=== PATIENT | female | born 1955 | race Hispanic/Latino ===

== ENCOUNTER 2020-08-29 02:27 | Inpatient (IN) | payer MEDICAID ==
[2020-08-29] MEDS ORDERED: methylPREDNISolone Sod Succinate 125 MG/2 ML INJ IV ONE (02:31)
[2020-08-29] MEDS ORDERED: MAGNESIUM SULFATE 2 GM/50 ML BAG IV ONE (02:31)
--- NOTE | 2020-08-29 02:33 | Emergency Department Report ---
ED Shortness of Breath HPI - General Chief Complaint: Dyspnea/Respdistress Stated Complaint: SHORTNESS OF BREATH Time Seen by Provider: 08/29/20 02:30 Source: patient, EMS Mode of arrival: Stretcher Limitations: No Limitations - History of Present Illness Initial Comments: Patient is a 65-year-old female with history of COPD, emphysema chronic bronchitis that presents emergency room with complaints of shortness of breath. Patient dates of difficulty breathing. Patient recently started at 2 PM. Patient states her symptoms are worsening. Patient states she has had a cough and has felt congested. Patient denies fever and chills. Patient states her symptoms are better with rest and worse with exertion. Patient states she ran out of her nebulizer treatments 2 weeks ago. Patient states she is on home oxygen of 3 L. Patient brought in by EMS. EMS states that she was on was 98% on her home oxygen level of 3 L. Patient was not given any medication by EMS. Patient denies recent travel. Patient denies recent international travel. Patient denies exposure to the novel coronavirus. Patient denies sick contacts. Patient denies fever and chills. Patient denies diarrhea. Patient denies coming in contact with anybody with symptoms of the novel coronavirus. . Complaint: shortness of breath -: Sudden Severity: severe Improves With: rest Worsens With: exertion Known History Of: COPD Treatments Prior to Arrival: oxygen - Related Data Home Oxygen Therapy: Yes Home Oxygen Amount: 3 Liters Allergies Allergy/AdvReac Type Severity Reaction Status Date / Time No Known Allergies Allergy Unverified 08/29/20 03:01 ED Review of Systems ROS: Stated complaint: SHORTNESS OF BREATH Other details as noted in HPI Constitutional: denies: chills, fever Eyes: denies: eye pain, eye discharge, vision change ENT: denies: ear pain, throat pain Respiratory: see HPI, shortness of breath, SOB with exertion, SOB at rest. denies: cough, wheezing Cardiovascular: as per HPI, dyspnea on exertion. denies: chest pain, palpitations Endocrine: no symptoms reported Gastrointestinal: denies: abdominal pain, nausea, diarrhea Genitourinary: denies: urgency, dysuria, discharge Musculoskeletal: denies: back pain, joint swelling, arthralgia Skin: denies: rash, lesions Neurological: denies: headache, weakness, paresthesias Psychiatric: anxiety. denies: depression Hematological/Lymphatic: denies: easy bleeding, easy bruising ED Past Medical Hx - Past Medical History Previous Medical History?: Yes Hx COPD: Yes - Surgical History Past Surgical History?: No - Family History Family history: no significant - Social History Smoking Status: Former Smoker Substance Use Type: None ED Physical Exam - General General appearance: alert, in distress - Head Head exam: Present: atraumatic, normocephalic - Eye Eye exam: Present: normal appearance - ENT ENT exam: Present: mucous membranes dry - Neck Neck exam: Present: normal inspection - Respiratory Respiratory exam: Present: respiratory distress, wheezes, decreased breath sounds - Cardiovascular Cardiovascular Exam: Present: regular rate, normal rhythm. Absent: systolic murmur, diastolic murmur, rubs, gallop - GI/Abdominal GI/Abdominal exam: Present: soft, normal bowel sounds - Extremities Exam Extremities exam: Present: normal inspection - Back Exam Back exam: Present: normal inspection - Neurological Exam Neurological exam: Present: alert, oriented X3 - Psychiatric Psychiatric exam: Present: normal affect, normal mood - Skin Skin exam: Present: warm, dry, intact, normal color. Absent: rash ED Course Vital Signs 08/29/20 08/29/20 08/29/20 02:33 02:34 02:35 Temperature Pulse Rate 93 H 91 H 93 H Pulse Rate [ Bilateral Throughout] Respiratory 24 36 H 37 H Rate Respiratory Rate [Bilateral Throughout] Blood Pressure 139/85 139/85 O2 Sat by Pulse 99 98 100 Oximetry 08/29/20 08/29/20 08/29/20 02:36 02:37 02:39 Temperature 97.1 F L Pulse Rate 89 95 H 93 H Pulse Rate [ Bilateral Throughout] Respiratory 24 25 H 35 H Rate Respiratory Rate [Bilateral Throughout] Blood Pressure 136/110 139/85 139/85 O2 Sat by Pulse 98 100 99 Oximetry 08/29/20 08/29/20 08/29/20 02:41 02:43 02:45 Temperature Pulse Rate 90 95 H 96 H Pulse Rate [ Bilateral Throughout] Respiratory 27 H 31 H 26 H Rate Respiratory Rate [Bilateral Throughout] Blood Pressure 139/85 139/85 139/85 O2 Sat by Pulse 99 100 99 Oximetry 08/29/20 08/29/20 08/29/20 02:46 02:47 02:49 Temperature Pulse Rate 88 88 90 Pulse Rate [ Bilateral Throughout] Respiratory 35 H 30 H 26 H Rate Respiratory Rate [Bilateral Throughout] Blood Pressure 144/76 144/76 144/76 O2 Sat by Pulse 99 100 100 Oximetry 08/29/20 08/29/20 08/29/20 02:51 02:53 02:55 Temperature Pulse Rate 98 H 89 92 H Pulse Rate [ Bilateral Throughout] Respiratory 36 H 28 H 33 H Rate Respiratory Rate [Bilateral Throughout] Blood Pressure 144/76 144/76 144/76 O2 Sat by Pulse 99 99 100 Oximetry 08/29/20 08/29/20 08/29/20 02:57 02:59 03:01 Temperature Pulse Rate 89 95 H 96 H Pulse Rate [ Bilateral Throughout] Respiratory 29 H 31 H 32 H Rate Respiratory Rate [Bilateral Throughout] Blood Pressure 144/76 144/76 147/91 O2 Sat by Pulse 100 100 99 Oximetry 08/29/20 08/29/20 08/29/20 03:03 03:05 03:07 Temperature Pulse Rate 102 H 97 H 96 H Pulse Rate [ Bilateral Throughout] Respiratory 33 H 22 22 Rate Respiratory Rate [Bilateral Throughout] Blood Pressure 147/91 147/91 147/91 O2 Sat by Pulse 100 100 100 Oximetry 08/29/20 08/29/20 03:09 03:11 Temperature Pulse Rate 95 H Pulse Rate [ 98 H Bilateral Throughout] Respiratory 30 H Rate Respiratory 28 H Rate [Bilateral Throughout] Blood Pressure 144/76 O2 Sat by Pulse 99 Oximetry - Reevaluation(s) Reevaluation #1: Patient have increased work of breathing. Patient was placed on BiPAP. 08/29/20 02:30 Reevaluation #2: Patient anxious and will be given Ativan. Patient on BiPAP. Patient's work to breathe has improved. 08/29/20 03:01 Reevaluation #3: I discussed all results with patient. I discussed plan of care with patient. Patient agrees with plan of care and admission. Patient to be admitted to the hospitalist service. 08/29/20 04:11 - Consultations Consultation #1: Hospitalist consulted for admission. Hospitalist to admit patient. 08/29/20 04:11 ED Medical Decision Making - Lab Data Result diagrams: 08/29/20 03:02 08/29/20 03:02 - EKG Data -: EKG Interpreted by Me EKG shows normal: sinus rhythm, axis, intervals, QRS complexes, ST-T waves Rate: normal - Radiology Data Radiology results: report reviewed, image reviewed interpreted by me: Chest x-ray: Positive pneumonia, no pneumothorax, no foreign body, no osseous findings, CHEST 1 VIEW INDICATION / CLINICAL INFORMATION: Dyspnea. COMPARISON: None available. FINDINGS: SUPPORT DEVICES: None. HEART / MEDIASTINUM: No significant abnormality. LUNGS / PLEURA: Mild hazy opacity in the lateral right lung base. No pneumothorax. ADDITIONAL FINDINGS: No significant additional findings. IMPRESSION: 1. Mild hazy opacity in the lateral right lung base. This may be artifactual secondary to superimposed soft tissues, but a developing airspace consolidation is possible. - Medical Decision Making Patient is a 65-year-old female that presents emergency room plaints of cough, congestion and shortness of breath. Patient has history of COPD. Patient brought in by EMS. Patient given magnesium, Solu-Medrol and DuoNeb and placed on BiPAP immediately after initial evaluation. Patient improved on BiPAP. Patient to work to breathe improved on BiPAP. Patient was also complaining anxiety with the BiPAP and she was given Ativan and the patient calm down. Patient responded well to treatment. Patient had labs done which were essentially unremarkable. Patient had a normal WBC. - Differential Diagnosis COPD exacerbation, pneumonia, anxiety, hypoxia, respiratory failure Critical Care Time: Yes Critical care time in (mins) excluding proc time.: 35 Critical care attestation.: If time is entered above; I have spent that time in minutes in the direct care of this critically ill patient, excluding procedure time. Critical Care Time: 35 minutes ED Disposition Clinical Impression: COPD exacerbation, SOB (shortness of breath), Cough, Person under investigation for COVID-19 Acute and chronic respiratory failure Qualifiers: Respiratory failure complication: hypoxia Qualified Code(s): J96.21 - Acute and chronic respiratory failure with hypoxia Pneumonia Qualifiers: Pneumonia type: due to unspecified organism Laterality: right Lung location: unspecified part of lung Qualified Code(s): J18.9 - Pneumonia, unspecified organism Disposition: DC-09 OP ADMIT IP TO THIS HOSP Is pt being admited?: Yes Does the pt Need Aspirin: No Condition: Critical Instructions: Chronic Obstructive Pulmonary Disease (ED), Bacterial Pneumonia (ED) Time of Disposition: 04:14
[2020-08-29] MEDS ORDERED: IPRATROPIUM 0.02% NEBU 2.5 ML IH ONE (03:00)
[2020-08-29] MEDS ORDERED: ALBUTEROL 2.5 MG/3 ML NEBU IH ONE (03:00)
[2020-08-29] MEDS ORDERED: LORazepam 2 MG/ML VIAL IV ONE (03:04)
[2020-08-29] MEDS: IPRATROPIUM 0.02% NEBU 2.5 ML IH ONE ×2 (03:08→06:57)
[2020-08-29] MEDS: ALBUTEROL 2.5 MG/3 ML NEBU IH ONE ×2 (03:08→06:58)
--- NOTE | 2020-08-29 03:21 | XRay Report ---
CHEST 1 VIEW INDICATION / CLINICAL INFORMATION: Dyspnea. COMPARISON: None available. FINDINGS: SUPPORT DEVICES: None. HEART / MEDIASTINUM: No significant abnormality. LUNGS / PLEURA: Mild hazy opacity in the lateral right lung base. No pneumothorax. ADDITIONAL FINDINGS: No significant additional findings. IMPRESSION: 1. Mild hazy opacity in the lateral right lung base. This may be artifactual secondary to superimpose d soft tissues, but a developing airspace consolidation is possible. Signer Name: Theresa Del Cid MD Signed: 08/29/2020 3:16 AM Workstation Name: [id number]
[2020-08-29 03:33] LABS: Basophils % (Auto) 0.6 % (0.0-1.8); Eosinophils # (Auto) 0.2 K/mm3 (0.0-0.4); Eosinophils % (Auto) 2.2 % (0.0-4.3); Hematocrit 39.6 % (30.3-42.9); Hemoglobin 13.4 gm/dl (10.1-14.3); Lymphocytes # (Auto) 2.3 K/mm3 (1.2-5.4); Lymphocytes % (Auto) 30.5 % (13.4-35.0); Mean Corpuscular HGB Conc 34 % (30-34); Mean Corpuscular Volume 93 fl (79-97); Monocytes # (Auto) 0.9 K/mm3 (0.0-0.8); Monocytes % (Auto) 11.6 % (0.0-7.3); Platelet Count 180 K/mm3 (140-440); Red Blood Count 4.24 M/mm3 (3.65-5.03); Red Cell Distribution Width 13.2 % (13.2-15.2)
[2020-08-29 03:43] LABS: INR 0.96 (0.87-1.13); Partial Thromboplastin Time 32.9 Sec. (24.2-36.6)
[2020-08-29 03:51] LABS: Creatine Kinase MB 2.2 ng/mL (0.0-4.0)
[2020-08-29 03:53] LABS: Alanine Aminotransferase 9 units/L (7-56); Albumin 4.1 g/dL (3.9-5); Blood Urea Nitrogen 10 mg/dL (7-17); Calcium 8.8 mg/dL (8.4-10.2); Hemolysis Index 14
[2020-08-29 03:55] LABS: BUN/Creatinine Ratio 25
[2020-08-29] MEDS ORDERED: AZITHROMYCIN/NS 500 MG/250 ML 500 MG/250 ML BAG IV ONE (04:19)
[2020-08-29] MEDS ORDERED: cefTRIAXone/NS 2 GM/100 ML 2 GM/100 ML BAG IV ONE (04:19)
[2020-08-29] MEDS ORDERED: MAGNESIUM HYDROXIDE (MOM) ORAL LIQD UDC PO PRN (04:43)
[2020-08-29] MEDS ORDERED: ONDANSETRON 4 MG/2 ML INJ IV PRN (04:43)
[2020-08-29] MEDS ORDERED: SODIUM CHLORIDE 0.9% 1000 ML 1,000 ML IV SCH (04:45)
--- NOTE | 2020-08-29 04:56 | History and Physical Report ---
History of Present Illness Date of examination: 08/29/20 Date of admission: 08/29/2020 Chief complaint: Shortness of breath Difficulty breathing History of present illness: 65-year-old female with known history of COPD presenting in the emergency room today complaining of shortness of breath which started sometime this afternoon. She has had some cough which is nonproductive and felt slightly congested. She denies any fever or chills, no chest pain, no headache or dizziness, no diaphoresis. Symptoms are said to get worse on exertion and feels better upon resting. Patient indicates that she ran out of her nebulizer treatments about 2 weeks ago. She has been on 3 L of home oxygen. Patient denies any sick contacts and no recent travel. Denies any contact with anyone with COVID-19. Work-up in the emergency room today, chest x-ray reveals mild hazy opacity in the lateral right lung base. Developing airspace consolidation is possible. Patient admitted with acute on chronic respiratory failure, COPD exacerbation and or underlying pneumonia. Past History Past Medical History: COPD Past Surgical History: denies: No surgical history Social history: smoking (Current daily smoker-smokes about 2 cigarettes daily) Family history: denies: no significant family history Medications and Allergies Allergies Allergy/AdvReac Type Severity Reaction Status Date / Time No Known Allergies Allergy Unverified 08/29/20 03:01 Active Meds: Active Medications Azithromycin (Zithromax/Ns) 500 mg in 250 mls @ 250 mls/hr IV ONCE ONE; Protocol Stop: 08/29/20 05:18 Review of Systems Constitutional: no fever, no chills Ears, nose, mouth and throat: no nasal congestion, no sore throat Cardiovascular: no chest pain, no palpitations Respiratory: cough, shortness of breath Gastrointestinal: no abdominal pain, no nausea, no vomiting, no diarrhea Genitourinary Female: no pelvic pain, no flank pain, no dysuria, no hematuria Musculoskeletal: no neck pain, no low back pain Integumentary: no rash, no pruritis Neurological: no headaches, no confusion Psychiatric: no anxiety, no depression, no confusion Endocrine: no polyphagia, no polydipsia, no polyuria, no nocturia Exam - Constitutional Vitals: Temp Pulse Resp BP Pulse Ox 97.1 F L 93 H 18 176/83 98 08/29/20 02:36 08/29/20 04:30 08/29/20 04:30 08/29/20 04:30 08/29/20 04:30 General appearance: Present: no acute distress, well-nourished - EENT Eyes: Present: PERRL, EOM intact. Absent: scleral icterus ENT: hearing intact, clear oral mucosa, dentition normal - Neck Neck: Present: supple, normal ROM - Respiratory Respiratory effort: normal Respiratory: bilateral: CTA - Cardiovascular Rhythm: regular Heart Sounds: Present: S1 & S2. Absent: gallop, systolic murmur, diastolic m urmur, rub, click - Extremities Extremities: no ischemia, pulses intact, pulses symmetrical, No edema, normal temperature, normal color, Full ROM Peripheral Pulses: within normal limits - Abdominal General gastrointestinal: Present: soft, non-tender, non-distended, normal bowel sounds. Absent: mass - Integumentary Integumentary: Present: clear, warm, dry, normal turgor. Absent: rash - Musculoskeletal Musculoskeletal: strength equal bilaterally - Psychiatric Psychiatric: appropriate mood/affect, intact judgment & insight, memory intact, cooperative - Neurologic Neurologic: CNII-XII intact, no focal deficits, moves all extremities HEART Score - HEART Score Troponin: Troponin T < 0.010 ng/mL (0.00-0.029) 08/29/20 03:02 Results - Labs CBC & Chem 7: 08/29/20 03:02 08/29/20 05:57 Labs: Abnormal lab results 08/29/20 08/29/20 Range/Units 03:02 03:02 [place] % (Auto) 11.6 H (0.0-7.3) % [place] # (Auto) 0.9 H (0.0-0.8) K/mm3 Sodium 136 L (137-145) mmol/L Creatinine 0.4 L (0.6-1.2) mg/dL CK-MB (CK-2) Rel Index 4.6 H (0-4) Total Protein 6.2 L (6.3-8.2) g/dL Assessment and Plan - Patient Problems (1) COPD exacerbation Current Visit: Yes Status: Acute Plan to address problem: Patient placed on nebulizing treatment and IV steroid. We will monitor oxygen saturation. (2) Acute and chronic respiratory failure Current Visit: Yes Status: Acute Qualifiers: Respiratory failure complication: hypoxia Qualified Code(s): J96.21 - Acute and chronic respiratory failure with hypoxia Plan to address problem: Possibly secondary to the COPD and underlying pneumonia. Consult placed to acid cleaner for evaluation. (3) Person under investigation for COVID-19 Current Visit: Yes Status: Acute Plan to address problem: We will place patient on isolation precautions. Will await COVID-19 testing. Consult placed to infectious disease for evaluation. (4) Pneumonia Current Visit: Yes Status: Acute Qualifiers: Pneumonia type: due to unspecified organism Laterality: right Lung location: unspecified part of lung Qualified Code(s): J18.9 - Pneumonia, unspecified organism Plan to address problem: Patient placed on empiric IV antibiotics. (5) DVT prophylaxis Current Visit: Yes Status: Acute Plan to address problem: We will placed on subcutaneous Lovenox. (6) Full code status Current Visit: Yes Status: Acute Plan to address problem: Patient is a full code.
[2020-08-29] MEDS: methylPREDNISolone Sod Succinate 40 MG/1 ML INJ IV SCH ×3 (06:40→22:38)
[2020-08-29 06:50] LABS: C-Reactive Protein 0.2 mg/dL (0.00-1.30)
[2020-08-29 07:38] LABS: Chol/HDL Ratio 2.39 %
[2020-08-29] MEDS: cefTRIAXone/NS 2 GM/100 ML 2 GM/100 ML BAG IV SCH (11:55)
[2020-08-29] MEDS: IPRATROPIUM/ALBUTEROL SULFATE 3 ML AMPUL.NEB IH SCH ×3 (12:14→21:47)
[2020-08-29] MEDS: AZITHROMYCIN/NS 500 MG/250 ML 500 MG/250 ML BAG IV SCH (12:26)
--- NOTE | 2020-08-29 13:58 | Consultation ---
History of Present Illness Consult date: 08/29/20 Reason for consult: dyspnea, COPD History of present illness: 65-year-old female with known history of COPD presenting in the emergency room today complaining of shortness of breath which started sometime this afternoon. She has had some cough which is nonproductive and felt slightly congested. She denies any fever or chills, no chest pain, no headache or dizziness, no diaphoresis. Symptoms are said to get worse on exertion and feels better upon resting. Patient indicates that she ran out of her nebulizer treatments about 2 weeks ago. She has been on 3 L of home oxygen. Patient is a current smoker 2 cigarettes/day however used to smoke 1-1/2 pack/day. She also have history of coronary artery disease and reports she has stent placed on her coronary arteries Past History Past Medical History: COPD Past Surgical History: denies: No surgical history Social history: smoking (Current daily smoker-smokes about 2 cigarettes daily) Family history: denies: no significant family history Medications and Allergies Allergies Allergy/AdvReac Type Severity Reaction Status Date / Time No Known Allergies Allergy Unverified 08/29/20 03:01 Active Meds: Active Medications Albuterol/Ipratropium (Ipratropium/Albuterol Sulfate 3 Ml Ampul.Neb) 1 ampul IH Q4HRT [facility] Last Admin: 08/29/20 12:14 Dose: Not Given Documented by: Aspirin (Aspirin Ec 81 Mg Tab) 81 mg PO QDAY [facility] Atorvastatin Calcium (Atorvastatin 40 Mg Tab) 40 mg PO QHS [facility] Enoxaparin Sodium (Enoxaparin 40 Mg/0.4 Ml Inj) 40 mg SUB-Q QDAY@2200 [facility]; Protocol Sodium Chloride (Nacl 0.9% 1000 Ml) 1,000 mls @ 75 mls/hr IV DIRECT [facility] Ceftriaxone Sodium (Rocephin/Ns 2 Gm/100 Ml) 2 gm in 100 mls @ 200 mls/hr IV Q24HR [facility]; Protocol Last Admin: 08/29/20 11:55 Dose: 200 mls/hr Documented by: Azithromycin (Zithromax/Ns) 500 mg in 250 mls @ 250 mls/hr IV Q24HR [facility]; Protocol Last Admin: 08/29/20 12:26 Dose: 250 mls/hr Documented by: Magnesium Hydroxide (Magnesium Hydroxide (Mom) Oral Liqd Udc) 30 ml PO Q4H PRN PRN Reason: Constipation Methylprednisolone Sodium Succinate (Methylprednisolone Sod Succinate 40 Mg/1 Ml Inj) 40 mg IV Q8HR [facility] Last Admin: 08/29/20 06:40 Dose: Not Given Documented by: Morphine Sulfate (Morphine 2 Mg/1 Ml Inj) 2 mg IV Q4H PRN PRN Reason: Pain, Moderate (4-6) Ondansetron HCl (Ondansetron 4 Mg/2 Ml Inj) 4 mg IV Q8H PRN PRN Reason: Nausea And Vomiting Sodium Chloride (Sodium Chloride 0.9% 10 Ml Flush Syringe) 10 ml IV BID [facility] Sodium Chloride (Sodium Chloride 0.9% 10 Ml Flush Syringe) 10 ml IV PRN PRN PRN Reason: LINE FLUSH Review of Systems All systems: negative Breasts: deferred Cardiovascular: shortness of breath, dyspnea on exertion Respiratory: cough with sputum Physical Examination Vital signs: Vital Signs Temp 98.8 F 08/29/20 02:27 General appearance: no acute distress, appears uncomfortable ENT: oropharynx moist Neck: supple, no JVD Ascultation: Bilateral: diminished breath sounds Cardiovascular: regular rate and rhythm Gastrointestinal: normoactive bowel sounds, soft, non-tender Integumentary: normal Extremities: no edema, pink and warm Musculoskeletal: no deformities Gait: other (Not tested) normal mental status, non-focal exam mood appropriate Results - Laboratory Findings CBC and BMP: 08/29/20 03:02 08/29/20 05:57 PT/INR, D-dimer PT 12.7 Sec. (12.2-14.9) 08/29/20 03:02 INR 0.96 (0.87-1.13) 08/29/20 03:02 D-Dimer 140.85 ng/mlDDU (0-234) 08/29/20 05:57 Abnormal lab findings: Abnormal Labs 08/29/20 08/29/20 08/29/20 03:02 03:02 05:57 [place] % (Auto) 11.6 H [place] # (Auto) 0.9 H Sodium 136 L Creatinine 0.4 L Glucose CK-MB (CK-2) Rel Index 4.6 H Troponin T 0.046 H D Total Protein 6.2 L 08/29/20 05:57 [place] % (Auto) [place] # (Auto) Sodium Creatinine Glucose 139 H CK-MB (CK-2) Rel Index Troponin T Total Protein - Diagnostic Findings Chest x-ray: image reviewed (Changes of COPD) Assessment and Plan Impression: COPD with acute exacerbation Continued tobacco abuse Coronary artery disease s/p angioplasty and stent placement. Hypoxemia on home oxygen therapy at 3 L Recommendation: Continue with COPD protocol including inhaled bronchodilators, IV steroids and antibiotics. Continue with supplemental oxygen Will require LAMA/LABA/ICS combination at home after discharge Come complete pulmonary function testing in the future as outpatient Smoking cessation counseling was provided.
--- NOTE | 2020-08-29 15:23 | Event Note ---
Date: 08/29/20 This is the second visit after midnight Patient seen and examined 65-year-old female with known history of COPD presenting in the emergency room c omplaining of shortness of breath Patient indicates that she ran out of her nebulizer treatments about 2 weeks ago. She has been on 3 L of home oxygen. Work-up in the emergency room today, chest x-ray reveals mild hazy opacity in the lateral right lung base. Developing airspace consolidation is possible. Patient admitted with acute on chronic respiratory failure, COPD exacerbation and or underlying pneumonia/covid19 PUI. Patient initially required BiPAP for an admission now currently saturating well with nasal cannula COVID-19 test ordered and pending, will downgrade her to COVID-19 floor from [facility] [place] Continue supportive care and management as dictated in the HPI
[2020-08-29] MEDS: ALPRAZolam 0.25 MG TAB PO PRN ×2 (17:53→23:57)
[2020-08-29] MEDS: ASPIRIN EC 81 MG TAB PO SCH (17:53)
[2020-08-29] MEDS: MORPHINE 2 MG/1 ML INJ IV PRN ×2 (17:56→22:36)
[2020-08-29] MEDS: ENOXAPARIN 40 MG/0.4 ML INJ SUB-Q SCH (22:37)
[2020-08-30] MEDS ORDERED: ALBUTEROL 2.5 MG/3 ML NEBU IH PRN (00:38)
[2020-08-30] MEDS: IPRATROPIUM/ALBUTEROL SULFATE 3 ML AMPUL.NEB IH SCH ×5 (08:15→22:11)
[2020-08-30] MEDS: AZITHROMYCIN/NS 500 MG/250 ML 500 MG/250 ML BAG IV SCH (10:21)
[2020-08-30] MEDS: ASPIRIN EC 81 MG TAB PO SCH (10:21)
[2020-08-30] MEDS: cefTRIAXone/NS 2 GM/100 ML 2 GM/100 ML BAG IV SCH (10:21)
[2020-08-30] MEDS: methylPREDNISolone Sod Succinate 40 MG/1 ML INJ IV SCH ×3 (10:21→21:14)
[2020-08-30 10:36] LABS: Basophils % (Auto) 0.1 % (0.0-1.8); Hematocrit 37.7 % (30.3-42.9); Hemoglobin 12.4 gm/dl (10.1-14.3); Lymphocytes % (Auto) 11.5 % (13.4-35.0); Mean Corpuscular HGB Conc 33 % (30-34); Mean Corpuscular Volume 94 fl (79-97); Monocytes # (Auto) 0.7 K/mm3 (0.0-0.8); Monocytes % (Auto) 7.5 % (0.0-7.3); Platelet Count 176 K/mm3 (140-440); Red Blood Count 4.02 M/mm3 (3.65-5.03); Red Cell Distribution Width 13.8 % (13.2-15.2)
--- NOTE | 2020-08-30 10:37 | Progress Note ---
Assessment and Plan -- COPD exacerbation Patient placed on nebulizing treatment and IV steroid. We will monitor oxygen saturation. -- Acute and chronic respiratory failure Possibly secondary to the COPD and underlying pneumonia. Consult placed to high school academic coach for evaluation. --Person under investigation for COVID-[address] patient on isolation precautions. Will await COVID-19 testing. Consult placed to infectious disease for evaluation. -- Pneumonia Patient placed on empiric IV antibiotics. We will also rule out COVID-19 --Mild hyponatremia, gentle IV fluid hydration and encourage oral intake -- DVT prophylaxis We will placed on subcutaneous Lovenox. -- Full code status. Brief history: 65-year-old female with known history of COPD presenting in the emergency room complaining of shortness of breath Patient indicates that she ran out of her nebulizer treatments about 2 weeks ago. She has been on 3 L of home oxygen. Work-up in the emergency room today, chest x-ray reveals mild hazy opacity in the lateral right lung base. Developing airspace consolidation is possible. Patient admitted with acute on chronic respiratory failure, COPD exacerbation and or underlying pneumonia/covid19 PUI. Patient initially required BiPAP for an admission now currently saturating well with nasal cannula COVID-19 test ordered and pending, 08/30: Continue empiric antibiotic, continue steroid and breathing treatment. Pending COVID-19 test. Continue to monitor clinically with supportive care. Subjective Date of service: 08/30/20 Interval history: Patient seen and examined. Medical records and medication list reviewed. No acute event overnight noted by the RN. Patient denies any chest pain or difficulty breathing. Patient is tolerating diet. Discussed plan of care at bedside with patient. Pending Covid test result Objective - Exam Narrative Exam: Limited physical exam due to COVID-19 pandemic to minimize transmission of the disease and to preserve PPE. Vital reviewed and stable. GENERAL: well-developed elderly white female sitting on bed appeared to be in n o discomfort. HEENT: Normocephalic. Atraumatic. NECK: Supple. CHEST/LUNGS: breathing nonlabored. HEART/CARDIOVASCULAR: Heart rate stable on telemetry ABDOMEN: Visibly not distended SKIN: There is no rash NEURO: No focal motor deficit. Follows command. MUSCULOSKELETAL: No joint effusion EXTRIMITY: No swelling, no cyanosis or clubbing. PSYCH: Cooperative. - Constitutional Vitals: Vital Signs - 12hr 08/29/20 08/29/20 08/29/20 22:40 22:50 23:00 Temperature Pulse Rate Respiratory Rate Blood Pressure 167/91 154/85 165/90 O2 Sat by Pulse 98 97 97 Oximetry 08/29/20 08/29/20 08/29/20 23:10 23:20 23:30 Temperature 98.1 F Pulse Rate 87 Respiratory 20 Rate Blood Pressure 118/64 146/87 136/91 O2 Sat by Pulse 95 97 95 Oximetry 08/29/20 08/29/20 08/29/20 23:40 23:50 23:52 Temperature 98.9 F Pulse Rate 89 Respiratory Rate Blood Pressure 136/91 155/88 155/88 O2 Sat by Pulse 95 97 97 Oximetry 08/30/20 08/30/20 08/30/20 00:00 00:10 00:20 Temperature Pulse Rate Respiratory Rate Blood Pressure 157/121 155/88 170/87 O2 Sat by Pulse 98 97 Oximetry 08/30/20 08/30/20 08/30/20 00:30 00:40 00:50 Temperature Pulse Rate Respiratory Rate Blood Pressure 174/84 170/87 167/83 O2 Sat by Pulse 96 97 97 Oximetry 08/30/20 04:54 Temperature 98.3 F Pulse Rate 82 Respiratory 20 Rate Blood Pressure 124/64 O2 Sat by Pulse 89 Oximetry - Labs CBC & Chem 7: 08/30/20 09:55 08/30/20 09:55 HEART Score - HEART Score Troponin: Troponin T < 0.010 ng/mL (0.00-0.029) 08/29/20 22:53
[2020-08-30 10:48] LABS: INR 1.01 (0.87-1.13)
[2020-08-30 11:52] LABS: BUN/Creatinine Ratio 20; Blood Urea Nitrogen 12 mg/dL (7-17); Calcium 8.8 mg/dL (8.4-10.2); Hemolysis Index 5
[2020-08-30] MEDS ORDERED: FLU VACC QUAD 2020-2021 (6 months +)/PF 60 0.5 ML SYRINGE IM ONE (12:00)
[2020-08-30] MEDS: MORPHINE 2 MG/1 ML INJ IV PRN ×2 (13:49→22:01)
--- NOTE | 2020-08-30 14:09 | Consultation ---
History of Present Illness - Reason for Consult Consult date: 08/30/20 r/o COVID Requesting physician: RICHIE HENDERSON III - History of Present Illness 65-year-old female with history of COPD on 3 L home O2, smoking abuse, admitted on 08/29/2020 secondary to 3-day history of acute onset shortness of breath. Patient run out off-nebulizer 2 weeks before admission. She has not had COVID- 19 vaccine.-Patient 98.8, HR 93, RR 24, O2 sat 99%, BP 139/85. Initial WBC 7.4. D-dimer 140. Ferritin 25. CRP 0.2. LFTs normal. Procalcitonin less than 0.05. Chest x-ray with hazy right-sided opacity. Review of Systems: positive in bold print General: fever, chills, malaise Cutaneous: rash, pruritus Head: headaches or injury Eyes: changes in vision, eye pain, double vision Ears: ear pain, ear discharge, ringing or hearing loss Nose: nose bleeding, stuffiness Mouth & throat: bleeding gums, horseness, no dental problems, or swollen glands Neck: no pain, node enlargement/lumps, tyroid enlargement or tenderness Respiratory: SOB, cough, LEIVA, wheezing, sputum, hemoptysis, pleuritic chest pain Cardiovascular: chest pain, leg edema, cyanosis, LEIVA, orthopnea Musculoskeletal: edema, deformities, pain Gastrointestinal: nausea, vomiting, hematemesis, diarrhea, constipation, melena, bright red blood in stools, fecal incontinence, jaundice Genitourinary/Reproductive: frequent urination, dysuria, hematuria, incontinence Neurogical: seizures, headaches, weakness, paresthesias, loss of speech or vision; memory loss, vertigo, tremors, numbness Psychiatric: stable mood; excessive anxiety, sadness or moodiness Past History Past Medical History: COPD Past Surgical History: denies: No surgical history Social history: smoking (Current daily smoker-smokes about 2 cigarettes daily) Family history: denies: no significant family history Medications and Allergies Allergies Allergy/AdvReac Type Severity Reaction Status Date / Time No Known Allergies Allergy Unverified 08/29/20 03:01 Active Meds: Active Medications Albuterol (Albuterol 2.5 Mg/3 Ml Nebu) 2.5 mg IH Q4HRT PRN PRN Reason: Shortness Of Breath Albuterol/Ipratropium (Ipratropium/Albuterol Sulfate 3 Ml Ampul.Neb) 1 ampul IH TIDRT [facility] Last Admin: 08/30/20 08:15 Dose: 1 ampul Documented by: Alprazolam (Alprazolam 0.25 Mg Tab) 0.25 mg PO Q6H PRN PRN Reason: Anxiety Last Admin: 08/29/20 23:57 Dose: 0.25 mg Documented by: Aspirin (Aspirin Ec 81 Mg Tab) 81 mg PO QDAY [facility] Last Admin: 08/30/20 10:21 Dose: 81 mg Documented by: Atorvastatin Calcium (Atorvastatin 40 Mg Tab) 40 mg PO QHS [facility] Last Admin: 08/29/20 22:37 Dose: 40 mg Documented by: Enoxaparin Sodium (Enoxaparin 40 Mg/0.4 Ml Inj) 40 mg SUB-Q QDAY@2200 [facility]; Protocol Last Admin: 08/29/20 22:37 Dose: 40 mg Documented by: Sodium Chloride (Nacl 0.9% 1000 Ml) 1,000 mls @ 75 mls/hr IV DIRECT [facility] Ceftriaxone Sodium (Rocephin/Ns 2 Gm/100 Ml) 2 gm in 100 mls @ 200 mls/hr IV Q24HR [facility]; Protocol Last Admin: 08/30/20 10:21 Dose: 200 mls/hr Documented by: Azithromycin (Zithromax/Ns) 500 mg in 250 mls @ 250 mls/hr IV Q24HR [facility]; Protocol Last Admin: 08/30/20 10:21 Dose: 250 mls/hr Documented by: Magnesium Hydroxide (Magnesium Hydroxide (Mom) Oral Liqd Udc) 30 ml PO Q4H PRN PRN Reason: Constipation Methylprednisolone Sodium Succinate (Methylprednisolone Sod Succinate 40 Mg/1 Ml Inj) 40 mg IV Q8HR [facility] Last Admin: 08/30/20 13:49 Dose: 40 mg Documented by: Morphine Sulfate (Morphine 2 Mg/1 Ml Inj) 2 mg IV Q4H PRN PRN Reason: Pain, Moderate (4-6) Last Admin: 08/30/20 13:49 Dose: 2 mg Documented by: Ondansetron HCl (Ondansetron 4 Mg/2 Ml Inj) 4 mg IV Q8H PRN PRN Reason: Nausea And Vomiting Last Admin: 08/29/20 17:56 Dose: 4 mg Documented by: Sodium Chloride (Sodium Chloride 0.9% 10 Ml Flush Syringe) 10 ml IV BID [facility] Last Admin: 08/30/20 13:55 Dose: 10 ml Documented by: Sodium Chloride (Sodium Chloride 0.9% 10 Ml Flush Syringe) 10 ml IV PRN PRN PRN Reason: LINE FLUSH Physical Examination - Physical Exam Narrative exam: General appearance: Alert in NAD pleasant Eyes: anicteric sclerae, moist conjunctivae; no lid-lag; PERRLA HENT: Normocephalic, Atraumatic; normal external ears, nares open, oropharynx clear with moist mucous membranes and no oral thrush; normal hard and soft palate. Neck: supple, tracheal midline, no JVD Lungs: Diminished breath sound bilaterally CV: RRR no murmur Abdomen: Soft, non-tender; no masses or hepatosplenomegaly Extremities: no edema, no cyanosis Skin: No rash. Psych: no agitated Neuro: alert and oriented x 3. Moving all extermities - Constitutional Vitals: Vital Signs Temp Pulse Resp BP Pulse Ox 98.3 F 92 H 20 124/64 97 08/30/20 04:54 08/30/20 08:10 08/30/20 08:10 08/30/20 04:54 08/30/20 08:20 Temperature -Last 24 Hours Temperature 98.3 F Temperature 98.9 F Temperature 98.1 F Results - Labs CBC & Chem 7: 08/30/20 09:55 08/30/20 09:55 Labs: Abnormal lab results 08/30/20 08/30/20 Range/Units 09:55 09:55 Lymph % (Auto) 11.5 L (13.4-35.0) % [place] % (Auto) 7.5 H (0.0-7.3) % Lymph # (Auto) 1.0 L (1.2-5.4) K/mm3 Seg Neutrophils % 80.9 H (40.0-70.0) % Glucose 191 H (65-100) mg/dL Assessment and Plan Cultures: None Assessment: 65-year-old female with history of COPD on 3 L home O2, smoking abuse, admitted on 08/29/2020 secondary to 3-day history of acute onset shortness of breath and cough: #COPD exacerbation with possible right-sided pneumonia: Doubt COVID-19 infection. Inflammatory markers for COVID-19 are normal. Procalcitonin<0.05. Chest x-ray with hazy right-sided opacity. #Acute on chronic respiratory failure: Patient is on 3 L home O2, currently on 4 L. Likely due to COPD exacerbation. Recommendations: -Follow SARS-CoV-2 PCR -Continue steroids per internal medicine/pulmonary -Continue ceftriaxone and azithromycin for COPD exacerbation -If SARS-CoV-2 PCR positive, will start remdesivir Will follow. Iram Moore MD Infectious Diseases Crate Repairer [facility] ([facility]) M [phone] O [phone]
--- NOTE | 2020-08-30 15:28 | Progress Note ---
Assessment and Plan Impression: COPD with acute exacerbation Continued tobacco abuse Coronary artery disease s/p angioplasty and stent placement. Hypoxemia on home oxygen therapy at 3 L Recommendation: Continue with COPD protocol including inhaled bronchodilators, IV steroids and antibiotics. Continue with supplemental oxygen Will require LAMA/LABA/ICS combination at home after discharge Come complete pulmonary function testing in the future as outpatient Smoking cessation counseling was provided. Patient seems to be improving with possible discharge on LAMA/LABA/ICS combination and steroid taper. 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 Patient will follow up in office. Subjective Date of service: 08/30/20 Interval history: Patient feeling better wants to go home patient thinks she is close to her baseline Objective - Exam Narrative Exam: General appearance: Alert in NAD pleasant Eyes: anicteric sclerae, moist conjunctivae; no lid-lag; PERRLA HENT: Normocephalic, Atraumatic; normal external ears, nares open, oropharynx clear with moist mucous membranes and no oral thrush; normal hard and soft palate. Neck: supple, tracheal midline, no JVD Lungs: Diminished breath sound bilaterally CV: RRR no murmur Abdomen: Soft, non-tender; no masses or hepatosplenomegaly Extremities: no edema, no cyanosis Skin: No rash. Psych: no agitated Neuro: alert and oriented x 3. Moving all extermities Vital Signs - 12hr 08/30/20 08/30/20 08/30/20 04:54 08:10 08:20 Temperature 98.3 F Pulse Rate 82 Pulse Rate [ 92 H Bilateral Throughout] Respiratory 20 Rate Respiratory 20 Rate [Bilateral Throughout] Blood Pressure 124/64 O2 Sat by Pulse 89 97 Oximetry Constitutional: no acute distress, appears uncomfortable ENT: oropharynx moist Neck: supple, no JVD Ascultation: Bilateral: diminished breath sounds Cardiovascular: regular rate and rhythm Gastrointestinal: normoactive bowel sounds, soft, non-tender Integumentary: normal Extremities: no edema, pink and warm Neurologic: normal mental status, non-focal exam Psychiatric: mood appropriate CBC and BMP: 08/30/20 09:55 08/30/20 09:55 ABG, PT/INR, D-dimer: PT/INR, D-dimer PT 13.2 Sec. (12.2-14.9) 08/30/20 09:55 INR 1.01 (0.87-1.13) 08/30/20 09:55 D-Dimer 140.85 ng/mlDDU (0-234) 08/29/20 05:57 Abnormal lab findings: Abnormal Labs 08/29/20 08/29/20 08/29/20 03:02 03:02 05:57 Lymph % (Auto) Iron % (Auto) 11.6 H Lymph # (Auto) Iron # (Auto) 0.9 H Seg Neutrophils % Sodium 136 L Creatinine 0.4 L Glucose CK-MB (CK-2) Rel Index 4.6 H Troponin T 0.046 H D Total Protein 6.2 L 08/29/20 08/30/20 08/30/20 05:57 09:55 09:55 Lymph % (Auto) 11.5 L Iron % (Auto) 7.5 H Lymph # (Auto) 1.0 L Iron # (Auto) Seg Neutrophils % 80.9 H Sodium Creatinine Glucose 139 H 191 H CK-MB (CK-2) Rel Index Troponin T Total Protein
[2020-08-30] MEDS: ENOXAPARIN 40 MG/0.4 ML INJ SUB-Q SCH (21:17)
[2020-08-30] MEDS: ALPRAZolam 0.25 MG TAB PO PRN (23:40)
[2020-08-31] MEDS: methylPREDNISolone Sod Succinate 40 MG/1 ML INJ IV SCH (05:15)
[2020-08-31] MEDS: IPRATROPIUM/ALBUTEROL SULFATE 3 ML AMPUL.NEB IH SCH ×3 (08:38→21:32)
[2020-08-31] MEDS: AZITHROMYCIN/NS 500 MG/250 ML 500 MG/250 ML BAG IV SCH (10:21)
[2020-08-31] MEDS: ASPIRIN EC 81 MG TAB PO SCH (11:15)
[2020-08-31] MEDS: ALPRAZolam 0.25 MG TAB PO PRN (11:15)
--- NOTE | 2020-08-31 11:17 | Progress Note ---
Assessment and Plan Impression: COPD with acute exacerbation Continued tobacco abuse Coronary artery disease s/p angioplasty and stent placement. Hypoxemia on home oxygen therapy at 3 L Recommendation: Continue with COPD protocol including inhaled bronchodilators. Taper steroids and switch to oral steroids and antibiotics. Continue with supplemental oxygen, has O2 at home Will require LAMA/LABA/ICS combination at home after discharge Come complete pulmonary function testing in the future as outpatient Smoking cessation counseling was provided. Patient seems to be improving with possible discharge on LAMA/LABA/ICS combination and steroid taper. 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 Patient will follow up in office. Subjective Date of service: 08/31/20 Interval history: Patient feeling better wants to go home patient thinks she is close to her baseline continue to improve Objective Vital Signs - 12hr 08/30/20 08/31/20 08/31/20 23:22 04:27 08:38 Temperature 97.9 F 98.0 F Pulse Rate 89 69 Pulse Rate [ 85 Bilateral Throughout] Respiratory 18 18 Rate Respiratory 20 Rate [Bilateral Throughout] Blood Pressure 173/84 137/69 O2 Sat by Pulse 95 94 94 Oximetry Constitutional: no acute distress, appears uncomfortable ENT: oropharynx moist Neck: supple, no JVD Ascultation: Bilateral: diminished breath sounds Cardiovascular: regular rate and rhythm Gastrointestinal: normoactive bowel sounds, soft, non-tender Integumentary: normal Extremities: no edema, pink and warm Neurologic: normal mental status, non-focal exam Psychiatric: mood appropriate CBC and BMP: 08/30/20 09:55 08/30/20 09:55 ABG, PT/INR, D-dimer: PT/INR, D-dimer PT 13.2 Sec. (12.2-14.9) 08/30/20 09:55 INR 1.01 (0.87-1.13) 08/30/20 09:55 D-Dimer 140.85 ng/mlDDU (0-234) 08/29/20 05:57 Abnormal lab findings: Abnormal Labs 08/29/20 08/29/20 08/29/20 03:02 03:02 05:57 Lymph % (Auto) Rich % (Auto) 11.6 H Lymph # (Auto) Rich # (Auto) 0.9 H Seg Neutrophils % Sodium 136 L Creatinine 0.4 L Glucose CK-MB (CK-2) Rel Index 4.6 H Troponin T 0.046 H D Total Protein 6.2 L 08/29/20 08/30/20 08/30/20 05:57 09:55 09:55 Lymph % (Auto) 11.5 L Rich % (Auto) 7.5 H Lymph # (Auto) 1.0 L Rich # (Auto) Seg Neutrophils % 80.9 H Sodium Creatinine Glucose 139 H 191 H CK-MB (CK-2) Rel Index Troponin T Total Protein
[2020-08-31] MEDS: MORPHINE 2 MG/1 ML INJ IV PRN ×2 (11:19→15:40)
[2020-08-31] MEDS: cefTRIAXone/NS 2 GM/100 ML 2 GM/100 ML BAG IV SCH (11:21)
--- NOTE | 2020-08-31 13:27 | Progress Note ---
Assessment and Plan Cultures: COVID-19 PCR: Negative Assessment: 65-year-old female with history of COPD on 3 L home O2, smoking, admitted on 08/29/2020 secondary to 3-day history of acute onset shortness of breath and cough: #COPD exacerbation with possible right-sided pneumonia: COVID negative. Inflammatory markers are normal. Procalcitonin<0.05. Chest x-ray with hazy right-sided opacity. #Acute on chronic respiratory failure: Patient is on 3 L home O2, currently on 4 L. Likely due to COPD exacerbation. Recommendations: -COVID-19 PCR negative -Continue steroids per pulmonary, for COPD -Okay for discharge from ID standpoint on p.o. doxycycline 100 mg twice daily for 3 days -Smoking cessation advised We will sign off. Please call with questions. Sharona Chacko MD, FACP [facility] ([facility]) O: [phone] F: [phone] Subjective Date of service: 08/31/20 Interval history: No fever. Feels well. Wants to go home. Objective - Exam Narrative Exam: Physical Exam: Constitutional: Alert, cooperative. No acute distress Head, Ears, Nose: Normocephalic, atraumatic. External ears, nose normal Eyes: Conjunctivae/corneas clear. No icterus. No ptosis. Neck: Supple, no meningeal signs Cardiovascular: S1, S2 normal. Respiratory: Air entry bilaterally fair GI: Soft, non-tender; bowel sounds normal. No peritoneal signs Musculoskeletal: No pedal edema, no cyanosis. Skin: No rash or abscess Hem/Lymphatic: No palpable cervical or supraclavicular nodes. No lymphangitis Psych: Mood ok. Affect normal Neurological: Awake, alert, oriented. No gross abnormality - Constitutional Vitals: Vital Signs Temp Pulse Resp BP Pulse Ox 98.2 F 60 20 137/69 100 08/31/20 12:00 08/31/20 12:00 08/31/20 12:00 08/31/20 04:27 08/31/20 12:00 Temperature -Last 24 Hours Temperature 98.2 F Temperature 98.0 F Temperature 97.9 F Temperature 98.6 F - Labs CBC & Chem 7: 08/30/20 09:55 08/30/20 09:55
--- NOTE | 2020-08-31 13:52 | Discharge Summary ---
Providers - Providers Date of Admission: 08/29/20 04:21 Date of discharge: 08/31/20 Attending physician: FARHAN GEORGE 08/29/20 04:21 Consult to Physician [CONS] Routine Comment: Consulting Provider: IRMA THORNE Physician Instructions: Reason For Exam: pui 08/29/20 04:43 Consult to Dietitian/Nutrition [CONS] Routine Physician Instructions: Reason For Exam: Reason for Consult: Diet education Consult to Physician [CONS] Routine Comment: Consulting Provider: HU POWELL Physician Instructions: Reason For Exam: Respiratory failure, COPD Exac, Pneumonia [facility] Condition: Critical Pertinent studies: CXR Hospital course: 65-year-old female with known history of COPD presenting in the emergency room complaining of shortness of breath Patient indicates that she ran out of her nebulizer treatments about 2 weeks ago. She has been on 3 L of home oxygen. Work-up in the emergency room today, chest x-ray reveals mild hazy opacity in the lateral right lung base. Developing airspace consolidation is possible. Patient admitted with acute on chronic respiratory failure, COPD exacerbation and or underlying pneumonia/covid19 PUI. Patient initially required BiPAP on admission then wean off to N/C O2 and saturating well. Patient was admitted to medical floor with scheduled nebs, iv abx, iv steroids and supplemental O2 to keep O2 sat at 94%. Patients symptom improved with medical management. Her COVID-19 test result was negative. Patient was then discharged home in stable condition with outpt f/u. Disposition: TO HOME OR SELFCARE Final Discharge Diagnosis (Prints w/discharge instructions): -- COPD exacerbation. -- Acute and chronic respiratory failure. --Person under investigation for COVID-19 ruled out. -- Community acquired Pneumonia. --Mild hyponatremia Time spent for discharge: 34 minutes Core Measure Documentation - Palliative Care Palliative Care/ Comfort Measures: Not Applicable - Core Measures Any of the following diagnoses?: none Exam - Physical Exam Narrative exam: GENERAL: well-developed white elderly female sitting on bed appeared to be in no discomfort. HEENT: Normocephalic. Atraumatic. No conjunctival congestion or icterus. Patient has moist mucous membranes. NECK: Supple. Trachea midline. CHEST/LUNGS: Diminished breath sound auscultated bilaterally, breathing nonlabored. Very few wheezes HEART/CARDIOVASCULAR: Regular in rate and rhythm. S1 and S2 positive. ABDOMEN: Abdomen is soft, nontender. Patient has normal bowel sounds. SKIN: There is no rash. Warm and dry. NEURO: No focal motor deficit. Follows command. MUSCULOSKELETAL: No joint effusion or tenderness. EXTRIMITY: No edema, no cyanosis or clubbing. PSYCH: Cooperative. - Constitutional Vitals: Temp Pulse Resp BP Pulse Ox 98.2 F 60 20 137/69 100 08/31/20 12:00 08/31/20 12:00 08/31/20 12:00 08/31/20 04:27 08/31/20 12:00 Plan Activity: advance as tolerated Weight Bearing Status: Weight Bear as Tolerated Diet: low fat, low salt Special Instructions: home oxygen via (3L n/c), home health RN [facility] [Primary Care Provider] - 3-5 Days ANNMARIE GUERIN [ED Automation Lead] - 7 Days Prescriptions: AtorvaSTATin [Lipitor] 20 mg PO QHS #30 tablet predniSONE [Deltasone] 40 mg PO QDAY #10 tablet Aspirin EC [Halfprin EC] 81 mg PO QDAY #30 tablet levoFLOXacin [Levaquin] 750 mg PO QDAY #4 tablet Albuterol Mdi (or & Nicu Only) [ProAir HFA Inhaler] 2 puff IH QID PRN #8.5 gram PRN Reason: Shortness Of Breath Budesonide/Formoterol Fumarate [Symbicort 160-4.5 Mcg Inhaler] 10.2 gm IH BID #1 hfa.aer.ad Ipratropium/Albuterol Sulfate [DUONEB *Not for PRN Use*] 1 ampul IH TIDRT #30 ampul.neb
[2020-08-31 15:13] VITALS: BP 134/74
[2020-09-01] MEDS ORDERED: AZITHROMYCIN 250 MG TAB PO SCH (10:00)
[2020-09-01] MEDS ORDERED: predniSONE 20 MG TAB PO SCH (10:00)
--- NOTE | 2020-09-01 12:45 | Electrocardiograph Report ---
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
== END 2020-08-31 17:30 | disposition home or self-care (01) | DRG 189 ==
LOC: ED 02:27 → IMCU 04:21 → 3A 19:31
PROVIDERS: ADMIT Internal Medicine Geriatric Medicine; ATTEND Internal Medicine
PROC: 5A09357 Assistance with Respiratory Ventilation, Less than 24 Consecutive Hours, Continuous Positive Airway Pressure (ICD-10-PCS; principal; 2020-08-29)
DX: J96.21 Acute and chronic respiratory failure with hypoxia (principal); J44.1 Chronic obstructive pulmonary disease with (acute) exacerbation; J18.9 Pneumonia, unspecified organism; Z20.822 Contact with and (suspected) exposure to COVID-19; E87.1 Hypo-osmolality and hyponatremia; F41.9 Anxiety disorder, unspecified; F17.210 Nicotine dependence, cigarettes, uncomplicated; J44.0 Chronic obstructive pulmonary disease with (acute) lower respiratory infection; Z95.812 Presence of fully implantable artificial heart; I25.10 Atherosclerotic heart disease of native coronary artery without angina pectoris; Z71.6 Tobacco abuse counseling
CPT/HCPCS: 36415; 71045; 80048; 80053; 80061; 82140; 82550; 82553; 82728; 82947; 83615; 84145; 84484; 85025; 85379; 85610; 85730; 86140; 93005; 93306; 94640; 94644; 99406; G0378; A9270-GY; J0456; J0696; J1650; J2060; J2270; J2405; J2920; J2930; J3475; U0003